=== PATIENT | male | born 1945 | race Caucasian/White ===

== ENCOUNTER 2019-10-22 12:48 | Emergency (ER) | payer MEDICARE, OTHER ==
[~2019-10-22] VITALS: Ht 172.7 cm; Wt 95.5 kg
[2019-10-22] MEDS ORDERED: LIDOCAINE 1% INJ 20 ML 20 ML VIAL ONE (13:21)
--- NOTE | 2019-10-22 13:30 | ED Integumentary General ---
General Chief Complaint: Bite-Animal/Human/Insect Stated Complaint: DOG BITE (RT ARM/RT LEG) Source: patient Exam Limitations: no limitations History of Present Illness Date Seen by Provider: Oct 22, 2019 Time Seen by Provider: 13:15 Initial Comments The patient is a 74-year-old male presents for evaluation of dog bites. He states that he was trying to fish bait picker a plate off the ground which the dog had already licked clean when the dog bit him on the foot and his left torso, left forearm, and right foot. He states the dog was acting normally and is a family pet which is up-to-date with immunizations. He states the dog was behaving normally before this. The patient is not up-to-date with his tetanus immunization status so this will be given. Timing/Duration: just prior to arrival Severity: moderate Location: torso (left), feet, extremities (left forearm) Possible Cause: foods (possible food-related) Associated Symptoms: denies symptoms Allergies and Home Medications Allergies Coded Allergies: No Known Drug Allergies (Unverified , 10/22/19) Patient Home Medication List Home Medication List Reviewed: Yes Review of Systems Review of Systems Constitutional: no symptoms reported EENTM: no symptoms reported Respiratory: no symptoms reported Cardiovascular: no symptoms reported Gastrointestinal: no symptoms reported Genitourinary: no symptoms reported Musculoskeletal: no symptoms reported Skin: other (multiple dog bites) Psychiatric/Neurological: No Symptoms Reported Endocrine: No Symptoms Reported Hematologic/Lymphatic: No Symptoms Reported All Other Systems Reviewed Negative Unless Noted: Yes Past Gclfzle-Tgocyz-Gwymeb Hx Past Med/Social Hx: Reviewed Nursing Past Med/Soc Hx Patient Social History Recent Foreign Travel: No Physical Exam Vital Signs Capillary Refill : General Appearance: WD/WN, no apparent distress HEENT: PERRL/EOMI, pharynx normal Neck: non-tender, full range of motion, supple, normal inspection Cardiovascular: regular rate, rhythm, no edema, no JVD Respiratory: chest non-tender, lungs clear, normal breath sounds, no respiratory distress Gastrointestinal: normal bowel sounds, non tender, soft Back: normal inspection, no vertebral tenderness Extremities: other (skin tear to left forearm, superficial laceration/abrasion to left torso, laceration to top of right foot, laceration to right fifth toe on the flexor and lateral surfaces) 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 as 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, no motor/sensory deficits, alert, normal mood/affect, oriented x 3 Skin: normal color, warm/dry Procedures/Interventions Wound Location: Lower Extremities Other Wound Location right foot (dorsal foot 3cm and right toe 1cm) Wound Length (cm): 4 Wound's Depth, Shape: superficial Wound Explored: clean Irrigated w/ Saline (ccs): 250 Anesthesia: 1% Lidocaine Volume Anesthetic (ccs): 4 Suture Size: 4-0 Number of Sutures: 7 Layer Closure?: 1 Progress Patient tolerated the repair well, no complications Progress/Results/Core Measures Results/Orders My Orders Orders - ANN MARIE LANTIGUA DO Lidocaine 1% Inj 20 Ml (Xylocaine 1% Inj (10/22/19 13:21) Lidocaine 1% Inj 20 Ml (Xylocaine 1% Inj (10/22/19 13:45) Dipht,Pertuss(Acell),Tet Adult (Boostrix (10/22/19 13:45) Progress Progress Note : Progress Note @1406 - Patient tolerated the repair well. Sutures should be removed in 7-10 days. Advised patient to return to the emergency Department immediately for any concern for infection, new or worsening symptoms. The patient expresses verbal understanding and agreement with the plan and is stable for discharge. Departure Impression Primary Impression: Dog bite Additional Impression: Laceration of foot, right Disposition: 01 HOME, SELF-CARE Condition: Stable Departure-Patient Inst. Decision time for Depature: 14:11 Referrals: CRYSTAL PLASCENCIA MD (PCP/Family) Primary Care Physician Patient Instructions: Animal Bites (DC) Add. Discharge Instructions: Your stitches should be removed in 7-10 days. Take the prescribed antibiotic as directed. Return to the emergency Department immediately for new or worsening symptoms. He can go to her doctor's office or return here to have the stitches taken out. Scripts Amoxicillin/Potassium Clav (Augmentin 875-125 Tablet) 1 Each Tablet 1 EACH PO BID for 7 Days, #14 TAB 0 Refills Prov: ANN MARIE LANTIGUA DO 10/22/19 ANN MARIE LANTIGUA DO Oct 22, 2019 13:30 POS
[2019-10-22] MEDS ORDERED: TETANUS,DIPTH,PERTUSS P/F (BOOSTRIX) 0.5 ML VIAL IM ONE (13:45)
[2019-10-22] MEDS ORDERED: LIDOCAINE 1% INJ 20 ML 20 ML VIAL INJ ONE (13:45)
[2019-10-22] MEDS ORDERED: AMOX-358 PO (14:13)
[2019-10-22 14:35] VITALS: BP 145/71
== END 2019-10-22 14:35 | disposition home or self-care (01) ==
LOC: ER FS 12:51
DX: S91.311A Laceration without foreign body, right foot, initial encounter (principal); S51.812A Laceration without foreign body of left forearm, initial encounter; S91.114A Laceration without foreign body of right lesser toe(s) without damage to nail, initial encounter; Z23 Encounter for immunization; W54.0XXA Bitten by dog, initial encounter
CPT/HCPCS: 12001; 90471; 90715

== ENCOUNTER 2020-11-27 10:02 | Outpatient (CLI) | payer MEDICARE, OTHER ==
[~2020-11-27] VITALS: Ht 175.3 cm; Wt 96.8 kg
[2020-11-27 09:58] VITALS: BP 146/77
[~2020-11-27 10:02] MED LIST: AMOX-358 PO
[2020-11-27] MEDS ORDERED: EPINEPHrine INJECTION 1 MG/ML AMP IM PRN (10:30)
[2020-11-27] MEDS ORDERED: diphenhydrAMINE 50 MG/ML INJ (BENADRYL) IV PRN (10:30)
[2020-11-27] MEDS ORDERED: BAMLANIVIMAB 700 MG in NS 200 ML IV ONE (10:30)
[2020-11-27 12:00] VITALS: BP 132/66
== END 2020-11-27 12:49 | disposition home or self-care (01) ==
LOC: INFUSION 10:02
PROVIDERS: ATTEND Nurse Practitioner Family
DX: U07.1 COVID-19 (principal)

== ENCOUNTER 2020-12-07 10:54 | Emergency (ER) | payer MEDICARE, OTHER ==
--- NOTE | 2020-12-07 11:34 | Diagnostic Imaging Report ---
INDICATION: Chest pain. Altered mental status. COMPARISON: None FINDINGS: Single frontal radiographic view of the chest was obtained and demonstrates scattered rounded alveolar opacities bilaterally, greatest within the left base. There is no large effusion or pneumothorax. Cardiac silhouette and pulmonary vasculature are within normal limits. Osseous structures show no acute abnormalities IMPRESSION: 1. Scattered bilateral nodular alveolar opacities greatest within the left base. Findings could be on the basis of bilateral pulmonary infiltrates. Given the nodular appearance, septic emboli or metastatic disease of the chest should be within the differential as well. Followup to resolution is advised. Further characterization with postcontrast CT of the chest would likely be of benefit as well. Dictated by: Dictated on workstation # [id number]
[2020-12-07 11:45] LABS: HEMATOCRIT 38 % (40-54); HEMOGLOBIN 12.8 G/DL (13.3-17.7); MEAN CORPUSCULAR HEMOGLOBIN 29 PG (25-34); MEAN CORPUSCULAR HGB CONC 33 G/DL (32-36); MEAN CORPUSCULAR VOLUME 86 FL (80-99); MEAN PLATELET VOLUME 8.4 FL (7.4-10.4); PLATELET COUNT 464 10^3/uL (130-400); WHITE BLOOD COUNT 5.8 10^3/uL (4.3-11.0)
[2020-12-07 11:46] LABS: BASOPHILS % (AUTO) 0 % (0-10); EOSINOPHILS % (AUTO) 0 % (0-10); LYMPHOCYTES # (AUTO) 0.8 X 10^3 (1.0-4.0); LYMPHOCYTES % (AUTO) 13 % (12-44); MONOCYTES # (AUTO) 0.6 X 10^3 (0.0-1.0); MONOCYTES % (AUTO) 10 % (0-12); NEUTROPHILS # (AUTO) 4.5 X 10^3 (1.8-7.8); NEUTROPHILS % (AUTO) 76 % (42-75)
--- NOTE | 2020-12-07 11:49 | Diagnostic Imaging Report ---
EXAMINATION: CT head without contrast. TECHNIQUE: Multiple contiguous axial images were obtained through the brain without the use of intravenous contrast. All CT scans use one or more of the following dose optimizing techniques: automated exposure control, MA and/or KvP adjustment based on a patient size and exam type, or iterative reconstruction. HISTORY: Altered mental status. Generalized weakness. COMPARISON: None available. FINDINGS: No large acute territorial ischemia, mass, or hemorrhage. No midline shift or mass effect. Decreased attenuation is seen in the periventricular and subcortical white matter. The ventricles and cortical sulci are prominent. The basilar cisterns are patent and unremarkable. The orbits are normal. Mucosal thickening is seen in the bilateral ethmoid sinuses. Mastoid air cells are clear. No soft tissue abnormality is seen. No osseus lesions or fractures are seen. IMPRESSION: 1. No large acute territorial ischemia, mass, or hemorrhage. 2. Chronic microvascular disease. 3. Generalized parenchymal volume loss. 4. Mild mucosal thickening in the bilateral ethmoid sinuses. Dictated by: Dictated on workstation # [id number]
[2020-12-07 11:57] LABS: ALANINE AMINOTRANSFERASE 38 U/L (0-55); ALKALINE PHOSPHATASE 54 U/L (40-136); BILIRUBIN,TOTAL 0.4 MG/DL (0.1-1.0); BUN/CREATININE RATIO 16; CALCIUM 9.4 MG/DL (8.5-10.1); CARBON DIOXIDE 25 MMOL/L (21-32); CHLORIDE 101 MMOL/L (98-107); GFR ESTIMATED > 60; GLUCOSE 112 MG/DL (70-105); POTASSIUM 3.8 MMOL/L (3.6-5.0); SODIUM 138 MMOL/L (135-145); TOTAL PROTEIN 7.5 GM/DL (6.4-8.2)
[2020-12-07 12:23] LABS: CLARITY,URINE CLEAR; COLOR,URINE YELLOW
[2020-12-07 12:24] LABS: BACTERIA,URINE TRACE /HPF; BILIRUBIN,URINE NEGATIVE (NEGATIVE); GLUCOSE, URINE (UA) NEGATIVE (NEGATIVE); KETONES,URINE NEGATIVE (NEGATIVE); LEUKOCYTE ESTERASE ,URINE NEGATIVE (NEGATIVE); NITRITE,URINE NEGATIVE (NEGATIVE); PROTEIN,URINE TRACE (NEGATIVE); SQUAMOUS EPITHELIAL CELL,UR 0-2 /HPF; WBC,URINE RARE /HPF
[2020-12-07] MEDS ORDERED: CATHETER FLUSH 10 ML SYR IV PRN (12:45)
[2020-12-07] MEDS ORDERED: IOHEXOL 350 MG/ML 100 ML (OMNIPAQUE 350) VIAL IV ONE (12:45)
[2020-12-07] MEDS ORDERED: NS 100 ML (IVPB) BAG IV ONE (12:45)
[2020-12-07] MEDS ORDERED: HOLD METFORMIN - RECEIVED CONTRAST 20 ML VIAL IV SCH (12:45)
--- NOTE | 2020-12-07 13:39 | Diagnostic Imaging Report ---
EXAMINATION: CT Chest, Abdomen, and Pelvis with intravenous contrast. TECHNIQUE: Multiple contiguous axial images were obtained through the chest, abdomen and pelvis after the uneventful administration of intravenous contrast. All CT scans use one or more of the following dose optimizing techniques: automated exposure control, MA and/or KvP adjustment based on a patient size and exam type, or iterative reconstruction. HISTORY: Abnormal chest radiograph. COMPARISON: None available. FINDINGS: There are bilateral peripheral areas of groundglass throughout both lungs with more nodular areas of consolidation in the bases. The most discrete area of nodularity measures 2.4 cm. The disease is peripheral and basilar predominant. No pleural effusion or pneumothorax. There is no axillary or supraclavicular lymphadenopathy. There is no mediastinal lymphadenopathy. Heart size is normal. There are moderate coronary artery calcifications. No pericardial effusion. Aorta is normal in caliber. The liver is normal without focal lesion. There is no biliary ductal dilation. Gallbladder is normal. Pancreas is normal. Spleen is normal. Adrenal glands are normal. A simple cyst is seen in the left kidney. No suspicious renal lesions. There is no hydronephrosis. Urinary bladder is normal. Prostate is markedly enlarged. Visualized bowel is normal in caliber without obstruction or inflammation. No free fluid or air. No abdominal or pelvic lymphadenopathy. Aorta is normal in caliber without aneurysm. There are no suspicious osseus lesions. IMPRESSION: 1. Multifocal bilateral areas of peripheral and peribronchial vascular groundglass and consolidation. The appearance is most suggestive of an organizing pneumonia pattern of lung injury which would most likely be caused by Covid 19 or a fungal pneumonia. Followup to resolution is recommended but this is felt highly unlikely to represent malignancy. 2. No acute abnormality in the abdomen or pelvis. The report was faxed to Infection Control by [email or web address]@1:39 PM. Dictated by: Dictated on workstation # [id number]
[2020-12-07] MEDS ORDERED: PIPERACILLIN SODIUM/TAZOBACTAM 4.5 GM in NS (IVPB) 100 ML IV ONE (14:30)
--- NOTE | 2020-12-07 17:13 | ED General ---
General Chief Complaint: Altered Mental Status Stated Complaint: AMS Nursing Triage Note: brought in by daughters with complaints of altered mental status. State he has become more confused in the past couple of days and has been beligerant, yelling and cussing at family members, and not recognizing family members. Family states he has also been weak and had more difficulty walking. Patient is oriented to person, place, and situation but cannot state year correctly. Tested positive for covid 14 days ago. Nursing Sepsis Screen: No Definite Risk Source of Information: Patient History of Present Illness Date Seen by Provider: Dec 07, 2020 Time Seen by Provider: 12:30 Initial Comments Patient is a 75-year-old male who is 13 days post COVID diagnosis of present status changes. Patient is becoming progressively more confused over the past 2 days in the larger not home yelling and cursing at family members. Patient has also been or dyspneic and had difficulty walking. Patient is oriented to person place but is disoriented to situation year which is abnormal for him. Patient does have history of early dementia. Additional history obtained from his daughters who are present and identified themselves as john of commercial real estate attorney. Timing/Duration: 2-3 Days Modifying Factors: improves with Other Associated Systoms: Shortness of Air, Weakness, Other Allergies and Home Medications Allergies Coded Allergies: No Known Drug Allergies (Unverified , 10/22/19) Home Medications Amoxicillin/Potassium Clav 1 Each Tablet, 1 EACH PO BID Prescribed by: ANN MARIE LANTIGUA on 10/22/19 1413 Patient Home Medication List Home Medication List Reviewed: Yes Review of Systems Review of Systems Constitutional: see HPI EENTM: see HPI Respiratory: see HPI Cardiovascular: see HPI Gastrointestinal: see HPI Genitourinary: see HPI Musculoskeletal: see HPI Skin: see HPI Psychiatric/Neurological: See HPI Hematologic/Lymphatic: See HPI Immunological/Allergic: see HPI All Other Systems Reviewed Negative Unless Noted: Yes Past Oejevsf-Farvak-Fambjw Hx Past Med/Social Hx: Reviewed Nursing Past Med/Soc Hx Patient Social History Alcohol Use: Occasionally Uses Smoking Status: Never a Smoker 2nd Hand Smoke Exposure: No Recent Infectious Disease Expo: No Recent Hopitalizations: No Seasonal Allergies Seasonal Allergies: No Past Medical History Surgeries: No Respiratory: No Cardiac: No Neurological: Yes Dementia Genitourinary: Yes Benign Prostatic Hyperpl Gastrointestinal: No Musculoskeletal: No Endocrine: Yes Diabetes, Non-Insulin dep HEENT: No Cancer: No Psychosocial: No Integumentary: No Physical Exam Vital Signs Vital Signs - First Documented 12/07/20 11:01 Temp 36.6 Pulse 87 Resp 24 B/P (MAP) 157/82 (107) Pulse Ox 92 Capillary Refill : Less Than 3 Seconds Height, Weight, BMI Height: '" Weight: lbs. oz. kg; BMI Method: General Appearance: No Apparent Distress, Other Eyes: Bilateral Eye EOMI HEENT: PERRL/EOMI, Pharynx Normal Neck: Full Range of Motion, Non Tender, Supple Respiratory: Decreased Breath Sounds Cardiovascular: Regular Rate, Rhythm, No Edema, Normal Peripheral Pulses Gastrointestinal: Soft Back: Normal Inspection, No CVA Tenderness Extremity: Normal Capillary Refill, Normal Inspection Neurologic/Psychiatric: Alert, Normal Mood/Affect, behavioral therapy coordinator II-XII Norm as Tested Focused Exam Sepsis Stage: Ruled Out Lactate Level 12/07/20 14:45: Lactic Acid Level 0.96 Lactic Acid Level Laboratory Tests Test 12/07/20 14:45 Lactic Acid Level 0.96 MMOL/L (0.50-2.00) Procedures/Interventions Suture Size: 4-0 Progress/Results/Core Measures Suspected Sepsis Recent Fever Within 48 Hours: No Infection Criteria Present: Suspected New Infection New/Unexplained Altered Menta: Yes Sepsis Screen: No Definite Risk SIRS Temperature: Pulse: 87 Respiratory Rate: 24 Laboratory Tests 12/07/20 11:10: White Blood Count 5.8 Blood Pressure 157 /82 Mean: 107 12/07/20 14:45: Lactic Acid Level 0.96 Laboratory Tests 12/07/20 11:10: Creatinine 0.90, Platelet Count 464H, Total Bilirubin 0.4 Results/Orders Lab Results Laboratory Tests Test 12/07/20 11:10 12/07/20 11:36 12/07/20 12:00 12/07/20 14:45 Range/Units White Blood Count 5.8 4.3-11.0 10^3/uL Red Blood Count 4.47 4.35-5.85 10^6/uL Hemoglobin 12.8 L 13.3-17.7 G/DL Hematocrit 38 L 40-54 % Mean Corpuscular Volume 86 80-99 FL Mean Corpuscular Hemoglobin 29 25-34 PG Mean Corpuscular Hemoglobin Concent 33 32-36 G/DL Red Cell Distribution Width 14.4 10.0-14.5 % Platelet Count 464 H 130-400 10^3/uL Mean Platelet Volume 8.4 7.4-10.4 FL Immature Granulocyte % (Auto) 0 % Neutrophils (%) (Auto) 76 H 42-75 % Lymphocytes (%) (Auto) 13 12-44 % Monocytes (%) (Auto) 10 0-12 % Eosinophils (%) (Auto) 0 0-10 % Basophils (%) (Auto) 0 0-10 % Neutrophils # (Auto) 4.5 1.8-7.8 X 10^3 Lymphocytes # (Auto) 0.8 L 1.0-4.0 X 10^3 Monocytes # (Auto) 0.6 0.0-1.0 X 10^3 Eosinophils # (Auto) 0.0 0.0-0.3 10^3/uL Basophils # (Auto) 0.0 0.0-0.1 10^3/uL Immature Granulocyte # (Auto) 0.0 0.0-0.1 10^3/uL Sodium Level 138 135-145 MMOL/L Potassium Level 3.8 3.6-5.0 MMOL/L Chloride Level 101 98-107 MMOL/L Carbon Dioxide Level 25 21-32 MMOL/L Anion Gap 12 5-14 MMOL/L Blood Urea Nitrogen 14 7-18 MG/DL Creatinine 0.90 0.60-1.30 MG/DL Estimat Glomerular Filtration Rate > 60 BUN/Creatinine Ratio 16 Glucose Level 112 H 70-105 MG/DL Calcium Level 9.4 8.5-10.1 MG/DL Corrected Calcium 9.4 8.5-10.1 MG/DL Magnesium Level 2.0 1.6-2.4 MG/DL Total Bilirubin 0.4 0.1-1.0 MG/DL Aspartate Amino Transf (AST/SGOT) 31 5-34 U/L Alanine Aminotransferase (ALT/SGPT) 38 0-55 U/L Alkaline Phosphatase 54 40-136 U/L Troponin I < 0.30 <0.30 NG/ML Total Protein 7.5 6.4-8.2 GM/DL Albumin 4.0 3.2-4.5 GM/DL Glucometer 86 70-110 MG/DL Urine Color YELLOW Urine Clarity CLEAR Urine pH 6.0 5-9 Urine Specific Athena 1.025 H 1.016-1.022 Urine Protein TRACE H NEGATIVE Urine Glucose (UA) NEGATIVE NEGATIVE Urine Ketones NEGATIVE NEGATIVE Urine Nitrite NEGATIVE NEGATIVE Urine Bilirubin NEGATIVE NEGATIVE Urine Urobilinogen 0.2 < = 1.0 MG/DL Urine Leukocyte Esterase NEGATIVE NEGATIVE Urine RBC (Auto) NEGATIVE NEGATIVE Urine RBC NONE /HPF Urine WBC RARE /HPF Urine Squamous Epithelial Cells 0-2 /HPF Urine Crystals NONE /LPF Urine Bacteria TRACE /HPF Urine Casts NONE /LPF Urine Mucus SMALL H /LPF Urine Culture Indicated NO Lactic Acid Level 0.96 0.50-2.00 MMOL/L My Orders Orders - LUIS MONTANEZ DO Cbc With Automated Diff (12/07/20 11:13) Comprehensive Metabolic Panel (12/07/20 11:13) Troponin I Fs (12/07/20 11:13) Chest 1 View Ap/Pa Only (12/07/20 11:13) Ekg Tracing (12/07/20 11:13) Urinalysis (12/07/20 11:13) Ct Head Wo (12/07/20 11:15) Accucheck Fasting (12/07/20 11:15) Ct Chest/Abdomen/Pelvis W (12/07/20 12:10) Iohexol Injection (Omnipaque 350 Mg/Ml 1 (12/07/20 12:45) Received Contrast (Hold Metformin- Contr (12/07/20 12:45) Sodium Chloride Flush (Catheter Flush Sy (12/07/20 12:45) Ns (Ivpb) (Sodium Chloride 0.9% Ivpb Bag (12/07/20 12:45) Magnesium (12/07/20 12:48) Lactic Acid Analyzer (12/07/20 14:18) Blood Culture (12/07/20 14:18) Piperacillin Sodium/Tazobactam (Zosyn Vi (12/07/20 14:30) Blood Culture (12/07/20 14:40) Medications Given in ED Current Medications Medications Dose Ordered Sig/Dilip Route Start Time Stop Time Status Last Admin Dose Admin Iohexol 100 ml ONCE ONCE IV 12/07/20 12:45 12/07/20 12:46 DC 12/07/20 13:02 100 ML Piperacillin Sod/ Tazobactam Sod 4.5 gm/Sodium Chloride 100 ml @ 200 mls/hr ONCE ONCE IV 12/07/20 14:30 12/07/20 14:59 DC 12/07/20 15:24 200 MLS/HR Sodium Chloride 10 ml NEEDED PRN IV 12/07/20 12:45 12/07/20 13:02 10 ML Sodium Chloride 100 ml ONCE ONCE IV 12/07/20 12:45 12/07/20 12:46 DC 12/07/20 13:02 100 ML Vital Signs/I&O 12/07/20 11:01 Temp 36.6 Pulse 87 Resp 24 B/P (MAP) 157/82 (107) Pulse Ox 92 Capillary Refill : Less Than 3 Seconds Blood Pressure Mean: 107 Point of Care Testing Finger Stick Blood Glucose: 86 Departure Communication (Admissions) Chest x-ray, CT head/chest/abdomen/pelvis: Reviewed Multiple nodular densities consistent with evolving pneumonia per radiology report Patient encephalopathic with dyspnea and weakness with findings of post COVID pneumonia. IV fluids antibiotics given. Patient accepted to admit [facility] Impression Primary Impression: Acute encephalopathy Additional Impression: Pneumonia due to COVID-19 virus Disposition: XF SHT-TRM HOSP Condition: Stable Transfer Transfer Reason: Exceeds level of care Departure-Patient Inst. Referrals: CRYSTAL PLASCENCIA MD (PCP/Family) Primary Care Physician LUIS MONTANEZ DO Dec 07, 2020 17:13
[2020-12-07 17:18] VITALS: BP 144/75
== END 2020-12-07 17:18 | disposition short-term general hospital (02) ==
LOC: EDUNIT# 10:54 → ER FS 10:55
DX: U07.1 COVID-19 (principal); J12.82 Pneumonia due to coronavirus disease 2019; G93.40 Encephalopathy, unspecified; E11.9 Type 2 diabetes mellitus without complications
CPT/HCPCS: 36415; 70450; 71045; 71260; 74177; 80053; 81000; 82962; 83605; 83735; 84484; 85025; 87040; 93005